=== PATIENT | female | born 1955 | race Two or more races ===

== ENCOUNTER 2018-11-27 11:15 | Inpatient (IN) | payer OTHER ==
[~2018-11-27] VITALS: Ht 157.5 cm; Wt 83.5 kg
[2018-11-27] MEDS ORDERED: METFORMIN HCL500 M2 PO (16:50)
[2018-11-27] MEDS ORDERED: TOPROL XL50 M1 PO (16:50)
[2018-11-27] MEDS ORDERED: COZAAR100 MG PO (16:50)
[2018-11-27] MEDS ORDERED: ZOLOFT100 MG PO (16:50)
[2018-11-27] MEDS ORDERED: PRILOSEC10 MG PO (16:50)
[2018-12-07] MEDS ORDERED: INTESTINEX680 M1 PO (18:48)
[2018-12-07] MEDS ORDERED: OXYC1TAB9 PO (18:48)
== END 2018-12-07 19:07 | disposition home or self-care (01) | DRG 334 ==
LOC: ADM 11:15 → EDSTATUS 11:15 → O/R 12-04 10:12 → SURH 12-04 10:12 → RECOVERY 12-04 11:15 → SURH 12-04 18:13
PROVIDERS: ADMIT Surgery
PROC: 07TC4ZZ Resection of Pelvis Lymphatic, Percutaneous Endoscopic Approach (ICD-10-PCS; 2018-12-04)
PROC: 0DJD8ZZ Inspection of Lower Intestinal Tract, Via Natural or Artificial Opening Endoscopic (ICD-10-PCS; 2018-12-04)
PROC: 4A12X4Z Monitoring of Cardiac Electrical Activity, External Approach (ICD-10-PCS; 2018-12-04)
PROC: 0DTP4ZZ Resection of Rectum, Percutaneous Endoscopic Approach (ICD-10-PCS; principal; 2018-12-04 16:15)
DX: C19 Malignant neoplasm of rectosigmoid junction (principal); R59.0 Localized enlarged lymph nodes; I11.9 Hypertensive heart disease without heart failure; D50.0 Iron deficiency anemia secondary to blood loss (chronic); E11.9 Type 2 diabetes mellitus without complications; E66.8 Other obesity; G47.33 Obstructive sleep apnea (adult) (pediatric); F41.8 Other specified anxiety disorders

== ENCOUNTER 2019-03-22 08:21 | Outpatient (CLI) | payer OTHER ==
[~2019-03-22 08:21] MED LIST: COZAAR100 MG PO; INTESTINEX680 M1 PO; METFORMIN HCL500 M2 PO; OXYC1TAB9 PO; PRILOSEC10 MG PO; TOPROL XL50 M1 PO; ZOLOFT100 MG PO
== END 2019-03-22 08:33 | disposition home or self-care (01) ==
LOC: NUCLEAR 08:21
DX: C20 Malignant neoplasm of rectum (principal)
CPT/HCPCS: 78815; A9552

== ENCOUNTER → 2019-06-28 | Outpatient (CLI) | payer OTHER | END | disposition home or self-care (01) | LOC: MAMO-SONO 10:45 | DX: N63.11 Unspecified lump in the right breast, upper outer quadrant (principal); Z12.31 Encounter for screening mammogram for malignant neoplasm of breast; Z87.898 Personal history of other specified conditions ==

== ENCOUNTER 2019-10-17 08:36 | Outpatient (CLI) | payer OTHER | END 2019-10-17 08:47 | disposition home or self-care (01) | LOC: NUCLEAR 08:36 | DX: C19 Malignant neoplasm of rectosigmoid junction (principal); D64.89 Other specified anemias | CPT/HCPCS: 78815; A9552 ==

== ENCOUNTER 2020-03-04 07:33 | Day surgery (SDC) | payer OTHER | END 2020-03-04 12:05 | disposition home or self-care (01) | LOC: AMB-ENDOS 07:33 | PROVIDERS: ATTEND Surgery | DX: K62.89 Other specified diseases of anus and rectum (principal); K64.8 Other hemorrhoids; Z20.828 Contact with and (suspected) exposure to other viral communicable diseases ==

== ENCOUNTER 2020-07-25 08:22 | Outpatient (CLI) | payer OTHER | END 2020-07-25 08:54 | disposition home or self-care (01) | LOC: MAMO-SONO 08:22 | PROVIDERS: ATTEND Internal Medicine Cardiovascular Disease | DX: R92.0 Mammographic microcalcification found on diagnostic imaging of breast (principal); R92.2 Inconclusive mammogram ==

== ENCOUNTER 2021-02-18 07:18 | Outpatient (CLI) | payer OTHER | END 2021-02-18 07:21 | disposition home or self-care (01) | LOC: NUCLEAR 07:18 | PROVIDERS: ATTEND Internal Medicine Hematology & Oncology | DX: C19 Malignant neoplasm of rectosigmoid junction (principal) | CPT/HCPCS: 78815; A9552 ==

== ENCOUNTER → 2021-04-13 14:39 | Outpatient (CLI) | payer OTHER ==
[~2021-04-13 14:39] MED LIST changes: +CIPRO PO; +PROTONIX40 M1 PO; +SERTRA PO; +SIMVASTATIN20 MG PO
== END | disposition home or self-care (01) ==
LOC: EKG 14:39
PROVIDERS: ATTEND Urology
DX: I11.9 Hypertensive heart disease without heart failure (principal); E11.9 Type 2 diabetes mellitus without complications; N13.1 Hydronephrosis with ureteral stricture, not elsewhere classified

== ENCOUNTER 2021-04-22 05:59 | Day surgery (SDC) | payer OTHER | END 2021-04-22 13:00 | disposition home or self-care (01) | LOC: CIR.AMB 05:59 | PROVIDERS: ATTEND Urology | DX: N13.1 Hydronephrosis with ureteral stricture, not elsewhere classified (principal); Z20.822 Contact with and (suspected) exposure to COVID-19 ==

== ENCOUNTER → 2021-05-01 | Outpatient (CLI) | payer OTHER | END | disposition home or self-care (01) | LOC: RAD 11:16 | PROVIDERS: ATTEND Urology | DX: N13.1 Hydronephrosis with ureteral stricture, not elsewhere classified (principal) ==

== ENCOUNTER 2021-11-25 15:02 | Outpatient (CLI) | payer OTHER | END 2021-11-25 15:15 | disposition home or self-care (01) | LOC: MAMO-SONO 15:02 | DX: R92.8 Other abnormal and inconclusive findings on diagnostic imaging of breast (principal) ==

== ENCOUNTER → 2021-12-08 07:48 | Outpatient (CLI) | payer OTHER | END | disposition home or self-care (01) | LOC: NUCLEAR 07:48 | PROVIDERS: ATTEND Internal Medicine Hematology & Oncology | DX: C19 Malignant neoplasm of rectosigmoid junction (principal) | CPT/HCPCS: 78815; A9552 ==

== ENCOUNTER 2022-01-11 10:45 | Outpatient (CLI) | payer OTHER | END 2022-01-11 10:51 | disposition home or self-care (01) | LOC: RAD 10:45 | PROVIDERS: ATTEND Urology | DX: I11.9 Hypertensive heart disease without heart failure (principal); N13.1 Hydronephrosis with ureteral stricture, not elsewhere classified ==

== ENCOUNTER 2022-02-05 13:46 | Outpatient (CLI) | payer OTHER | END 2022-02-05 15:04 | disposition home or self-care (01) | LOC: EKG 13:46 | PROVIDERS: ATTEND Urology | DX: I10 Essential (primary) hypertension (principal) ==

== ENCOUNTER 2022-02-24 05:30 | Day surgery (SDC) | payer OTHER ==
[~2022-02-24] VITALS: Ht 154.9 cm; Wt 77.1 kg
== END 2022-02-24 10:25 | disposition home or self-care (01) ==
LOC: CIR.AMB 05:30
PROVIDERS: ATTEND Urology
DX: N13.1 Hydronephrosis with ureteral stricture, not elsewhere classified (principal); Z20.822 Contact with and (suspected) exposure to COVID-19; I10 Essential (primary) hypertension; E11.9 Type 2 diabetes mellitus without complications; Z79.84 Long term (current) use of oral hypoglycemic drugs

== ENCOUNTER 2022-03-04 11:13 | Outpatient (CLI) | payer OTHER | END 2022-03-04 11:21 | disposition home or self-care (01) | LOC: RAD 11:13 | PROVIDERS: ATTEND Urology | DX: K56.609 Unspecified intestinal obstruction, unspecified as to partial versus complete obstruction (principal) ==

== ENCOUNTER 2023-05-12 07:51 | Outpatient (CLI) | payer OTHER ==
[~2023-05-12 07:51] MED LIST changes: +NEURONTIN300 MG PO; +SULINDAC200 MG PO
== END 2023-05-12 07:52 | disposition home or self-care (01) ==
LOC: NUCLEAR 07:51
PROVIDERS: ATTEND Internal Medicine Hematology & Oncology
DX: C18.9 Malignant neoplasm of colon, unspecified (principal); D64.9 Anemia, unspecified
CPT/HCPCS: 78815; A9552